=== PATIENT | female | born 1935 | race Caucasian/White ===

== ENCOUNTER → 2016-07-23 | Outpatient (CLI) | payer MEDICARE, OTHER ==
[~2016-07-23] MED LIST: ACETAMINOPHEN; ALLEGRA ALLERG180 MG PO; ASPIRIN81 M2 PO; ASPIRINEC; ATENOLOL25 MG PO; CELEXA; CELEXA20 MG PO; CLONAZEPAM0.5 MG PO; COLACE; FLONASE ALLERG9.9 ML; FLONASE16 GM; FOSAMAX; FOSINOPRIL; HCTZ; LASIX PO; MONOPRIL40 MG PO; MULTI VITAMIN1 EACH PO; NEXIUM PO; PLENDIL; ZOCOR20 MG PO; ZYRTEC
--- NOTE | ~2016-07-23 | MY29 ---
[facility] A Service of [facility] RADIOLOGY TEXT RESULTS PATIENT: ADIS BLEVINS LOCATION: [facility] : 35 UNIT #: [id number] AGE: [address]: Tahmina Gilbert MD SEX: F ORDER DR: [id number] [facility] [address] [place], [place] [address] [id number] O MR#: [id number] Acc #: [id number] NAME: ADIS BLEVINS : 1935 SEX: F STUDY DATE/TIME: 07/23/2016 11:51 UNIT: [facility] ROOM: STUDY DESCRIPTION: MY [facility] SCREENING W/ CAD BILAT Attending Physician: Tahmina Gilbert M.D. Ordering Physician: Tahmina Gilbert M.D. Primary Care Physician: Tahmina Gilbert M.D. MEDICAL IMAGING REPORT This report is preliminary unless electronic signature is present EXAM Bilateral digital screening mammogram with CAD, 07/23/2016. HISTORY 81-year-old female with no personal or family history of breast cancer. No current complaints. COMPARISON Bilateral screening mammogram 07/09/2015, 06/15/2014, 05/30/2012. FINDINGS CC, MLO, and extended craniocaudal lateral views were obtained of each breast, utilizing digital technique, and reviewed with an FDA-approved CAD device. Breast parenchyma is predominantly fatty replaced. Round markers are placed over the left breast denoting skin lesions. No new or suspicious nodule is identified. 2 round bubx-[id number]-5-mm nodules within the superior hemisphere, right breast, mid to posterior third, appear unchanged from prior in keeping with benign findings, such as small intramammary lymph nodes. No architectural distortion or suspicious clustered microcalcification. IMPRESSION Benign findings. Routine bilateral screening mammogram is recommended in 1 year. Patients over the age of 40 are entered into a reminder system with target due date for the next mammogram. A result letter will also be sent to the patient. BIRADS: 2 Benign finding. [facility] A Service [facility] RADIOLOGY TEXT RESULTS PATIENT: ADIS BLEVINS LOCATION: [facility] : 35 UNIT #: [id number] AGE: [address]: Tahmina Gilbert MD SEX: F ORDER DR: Dictated by... Jessie Alvarez M.D. THIS IS AN ELECTRONICALLY VERIFIED REPORT Jessie Alvarez M.D. at 07/24/2016 6:13 AM YESY/dakota TD: 07/23/2016 14:38 JOB #: [id number] MEDICAL IMAGING REPORT Page 1 of 1 COPY
== END | disposition home or self-care (01) ==
LOC: CWCC 11:29
DX: Z12.31 Encounter for screening mammogram for malignant neoplasm of breast (principal)
CPT/HCPCS: G0202